=== PATIENT | female | born 1960 | race Hispanic/Latino ===

== ENCOUNTER 2020-01-21 11:28 | Emergency (ER) | payer MEDICAID ==
[2020-01-21 11:59] VITALS: BP 138/58
[2020-01-21] MEDS ORDERED: oxyCODONE /ACETAMINOPHEN 5-325MG TAB PO ONE (12:04)
--- NOTE | 2020-01-21 13:11 | XRay Report ---
Left forearm 2 views INDICATION / CLINICAL INFORMATION: left wrist and forearm pain. COMPARISON: None available. FINDINGS: BONES/JOINT(S): No acute fracture or subluxation. No significant degenerative changes. SOFT TISSUES: No significant abnormality. ADDITIONAL FINDINGS: None. Signer Name: Juan Manuel Bustos MD Signed: 01/21/2020 1:07 PM Workstation Name: [id number]
--- NOTE | 2020-01-21 13:14 | XRay Report ---
LEFT HAND 3 VIEWS INDICATION / CLINICAL INFORMATION: Left hand pain after fall. COMPARISON: None available. FINDINGS: BONES and JOINT(S): No acute fracture or subluxation. Generalized osteopenia is noted with severe rad iocarpal joint space loss. No additional significant arthritis is seen. SOFT TISSUES: No significant abnormality. ADDITIONAL FINDINGS: None. IMPRESSION: No acute abnormality of the left hand. Signer Name: Robert Gordillo MD Signed: 01/21/2020 1:09 PM Workstation Name: [email or web address]
--- NOTE | 2020-01-21 14:29 | Emergency Department Report ---
HPI - General Chief Complaint: Fall Time Seen by Provider: 01/21/20 12:00 - HPI HPI: 59-year-old -[place] female presents to the emergency department via EMS with complaint of a ground-level fall and she complains of pain to the left hand, wrist and forearm. The patient walks with a walker secondary to osteoarthritis and chronic pain. She says that she was wearing slippers and they slipped out from underneath her. She fell forwards and try to catch herself with her outstretched arms. She denies hitting her head or any loss of consciousness. She also has a history of seizures, coronary artery disease with cardiac stents. Patient is visiting from [place] and has a primary care physician there. She did not take anything for her symptoms prior to presentation. ED Past Medical Hx - Past Medical History Previous Medical History?: Yes Hx Hypertension: Yes Hx Diabetes: Yes Hx Arthritis: Yes Hx Seizures: Yes Additional medical history: TBI - Surgical History Past Surgical History?: Yes Additional Surgical History: stent placement, - Social History Smoking Status: Current Every Day Smoker Substance Use Type: None - Medications Home Medications: Home Medications Medication Instructions Recorded Confirmed Last Taken Type oxyCODONE /ACETAMINOPHEN [Percocet 1 tab PO Q8H PRN #10 tablet 01/21/20 Unknown Rx 5/325] ED Review of Systems ROS: Stated complaint: GLF /LEFT WRIST INJURY Other details as noted in HPI Comment: All other systems reviewed and negative Constitutional: denies: chills, fever Eyes: denies: eye pain, vision change ENT: denies: ear pain, throat pain Respiratory: denies: cough, shortness of breath Cardiovascular: denies: chest pain, palpitations Gastrointestinal: denies: abdominal pain, vomiting Genitourinary: denies: dysuria, discharge Musculoskeletal: joint swelling, arthralgia, myalgia. denies: back pain Skin: denies: rash, lesions Neurological: denies: headache, numbness, paresthesias Physical Exam - Physical Exam Vital Signs: Vital Signs 01/21/20 01/21/20 11:58 12:42 Temperature 98 F Pulse Rate 71 Respiratory 16 15 Rate Blood Pressure 138/58 [Left] O2 Sat by Pulse 98 Oximetry Physical Exam: GENERAL: The patient is well-developed well-nourished. HENT: Normocephalic. Atraumatic. Patient has moist mucous membranes. EYES: Extraocular motions are intact. NECK: Supple. Trachea is midline. CHEST/LUNGS: Clear to auscultation. There is no respiratory distress noted. HEART/CARDIOVASCULAR: Regular. There is no tachycardia. ABDOMEN: Abdomen is soft, nontender. Patient has normal bowel sounds. There is no abdominal distention. SKIN: Skin is warm and dry. NEURO: The patient is awake, alert, and oriented. The patient is cooperative. The patient has no focal neurologic deficits. Normal speech. MUSCULOSKELETAL: There is tenderness to palpation to the left hand, left wrist and distal forearm but no obvious deformity. +2/4 radial pulse and capillary refill less than 2 seconds to the affected left upper extremity. Decreased range of motion of the left upper extremity secondary to pain. ED Course Vital Signs 01/21/20 01/21/20 11:58 12:42 Temperature 98 F Pulse Rate 71 Respiratory 16 15 Rate Blood Pressure 138/58 [Left] O2 Sat by Pulse 98 Oximetry ED Medical Decision Making - Radiology Data Radiology results: image reviewed interpreted by me: X-ray of the left hand and left forearm do not show any fractures, dislocations, or any other acute process. - Medical Decision Making This patient presents with pain from the left hand through the mid forearm after having a fall just prior to presentation. X-rays do not show any fracture, dislocation or any acute process. Patient appears neurovascularly intact. She was seen ambulatory prior to discharge and both appears and feels stable. Placed in a splint for stabilization of the injured arm. She was given referrals for orthopedist. She will return to the ER with any worsening of her symptoms or any acute distress. - Differential Diagnosis Fracture, dislocation, contusion, sprain, strain Critical Care Time: No Critical care attestation.: If time is entered above; I have spent that time in minutes in the direct care of this critically ill patient, excluding procedure time. ED Disposition Clinical Impression: Left hand pain, Left wrist pain, Left forearm pain Fall Qualifiers: Encounter type: initial encounter Qualified Code(s): W19.XXXA - Unspecified fall, initial encounter Disposition: TO HOME OR SELFCARE Is pt being admited?: No Condition: Stable Instructions: Wrist Injury (ED), Arthralgia (ED), Fall Prevention (ED) Additional Instructions: Please follow-up with an orthopedist in the next few days. I have given you a referral for 2 different local orthopedic groups. Return to the emergency department with any worsening of your symptoms or any acute distress. You have been prescribed a medication that is sedating and therefore should not be taken prior to driving, working, and responsible for children and in no way should be mixed with alcohol of any quantity. Prescriptions: oxyCODONE /ACETAMINOPHEN [Percocet 5/325] 1 tab PO Q8H PRN #10 tablet PRN Reason: Pain Referrals: DONNELL KENDALL MD [Staff Physician] - 2-3 Days [facility] [Provider Group] - 2-3 Days Time of Disposition: 14:28
== END 2020-01-21 15:19 | disposition home or self-care (01) ==
LOC: ED 11:28
DX: M25.532 Pain in left wrist (principal); M79.632 Pain in left forearm; M79.642 Pain in left hand; W18.30XA Fall on same level, unspecified, initial encounter; Y93.89 Activity, other specified; Y92.89 Other specified places as the place of occurrence of the external cause; Y99.8 Other external cause status